=== PATIENT | female | born 1940 | race Caucasian/White ===

== ENCOUNTER → 2020-12-13 | Outpatient (CLI) | payer OTHER ==
[~2020-12-13] MED LIST: APAP500 PO; ASPIRIN325 PO; CARVEDILOL12.5 MG PO; CO Q-1010 MG PO; COLACE100 MG PO; COZAAR 25 MG TA25 MG PO; ETODOLAC 400 M400 MG PO; K-DUR 20 MEQ T20 MEQ PO; LASIX 40 MG TAB40 MG PO; LIPITOR10 MG PO; MULTIVITAMINS PO; NORCO 5-325 TA1 EACH PO; OCUVITE TABLET1 EAC1 PO; OMEGA-31000 MG PO; OXYCODONE HCL 55 MG PO; VITAMIN D35000 UNI1 PO; XARELTO10 MG PO
== END | disposition hospice, home (50) ==
LOC: M.RAD 09:38
PROVIDERS: ATTEND Orthopaedic Surgery
DX: M16.12 Unilateral primary osteoarthritis, left hip (principal); M25.552 Pain in left hip; G89.29 Other chronic pain; I10 Essential (primary) hypertension; Z98.890 Other specified postprocedural states; Z79.899 Other long term (current) drug therapy; Z95.0 Presence of cardiac pacemaker; Z88.0 Allergy status to penicillin; Z80.0 Family history of malignant neoplasm of digestive organs; Z96.653 Presence of artificial knee joint, bilateral